=== PATIENT | male | born 1995 | race African-American/Black ===

== ENCOUNTER 2019-03-30 14:39 | Emergency (ER) | payer SELFPAY ==
[~2019-03-30] VITALS: Ht 177.8 cm; Wt 83.9 kg
[2019-03-30] MEDS ORDERED: NKM (14:51)
[2019-03-30 14:54] VITALS: BP 94/52
--- NOTE | 2019-03-30 14:55 | NUR ---
ED Nurse Note: Pt is here to check for STD, stated partner informed him that she has STD recently.
[2019-03-30] MEDS ORDERED: Lidocaine 1% MPF 10mg/ml 5ml INJ ONE (15:15)
--- NOTE | 2019-03-30 15:32 | Emergency Room Report ---
History of Present Illness General Chief Complaint: Male Urogenital Problems Source: Patient Present Illness HPI 23-year-old male with no significant past medical history here requesting treatment for exposure to gonorrhea. Patient sexual partner was recently diagnosed and treated for gonorrhea. Patient denies any penile discharge or urinary symptoms. Denies abdominal pain, nausea vomiting, fever and chills. Patient denies any condom use. Allergies: Coded Allergies: PENICILLINS (Verified Allergy, Unknown, 03/30/19) Patient History Past Medical History: see triage record Past Surgical History: unable to obtain Pertinent Family History: none Immunizations: UTD Reviewed Nursing Documentation: PMH: Agreed; PSxH: Agreed Nursing Documentation-PMH Past Medical History: No Stated History Review of Systems All Other Systems: negative except mentioned in HPI Physical Exam Vital Signs Date Time Temp Pulse Resp B/P (MAP) Pulse Ox O2 Delivery O2 Flow Rate FiO2 03/30/19 14:48 98.2 47 18 94/52 (66) 96 Room Air Sp02 EP Interpretation: reviewed General Appearance: no apparent distress, alert, GCS 15, non-toxic Head: normocephalic, atraumatic ENT: hearing grossly normal, normal pharynx, no angioedema, normal voice Neck: full range of motion, supple/symm/no masses Respiratory: chest non-tender, lungs clear, normal breath sounds, speaking full sentences Cardiovascular #1: regular rate, rhythm, no edema Gastrointestinal: normal inspection, non tender, soft Rectal: deferred Genitourinary: no CVA tenderness Musculoskeletal: back normal, gait/station normal, normal range of motion, non- tender, calf tenderness Neurologic: alert, oriented x3, responsive, motor strength/tone normal, sensory intact, speech normal Psychiatric: judgement/insight normal, memory normal, mood/affect normal, no suicidal/homicidal ideation Skin: no rash Lymphatic: no adenopathy Medical Decision Making PA Attestation All diagnoses and treatment plans were reviewed and discussed with my supervising physician Dr. Corbin Diagnostic Impression: Primary Impression: Exposure to gonorrhea ER Course 23-year-old male with no significant past medical history here requesting treatment for exposure to gonorrhea. Patient sexual partner was recently diagnosed and treated for gonorrhea. Patient denies any penile discharge or urinary symptoms. Denies abdominal pain, nausea vomiting, fever and chills. Patient denies any condom use. Ddx considered but are not limited to: vaginitis, yeast infection, BV, chlamydia , Gohnorrea, syphylis, HIV, herpes 1 or 2 Vital signs: are WNL, pt. is afebrile H&PE are most consistent with : Exposure to gonorrhea ORDERS: UA, GC and chlamydia, doxycycline ED INTERVENTIONS: None required at this time. DISCHARGE: At this time pt. is stable for d/c to home. Will provide printed patient care instructions, and any necessary prescriptions. Care plan and follow up instructions have been discussed with the patient prior to discharge. Patient to follow-up with a primary care provider and finish antibiotics. Last Vital Signs Date Time Temp Pulse Resp B/P (MAP) Pulse Ox O2 Delivery O2 Flow Rate FiO2 03/30/19 14:54 98.2 51 18 94/52 96 Room Air Disposition: HOME, SELF-CARE Condition: Stable Scripts Doxycycline Hyclate (DOXYCYCLINE HYCLATE) 100 Mg Tablet 100 MG PO BID for 10 Days, #20 TAB Prov: Trevor Quintanilla 03/30/19 Patient Instructions: Gonorrhea Additional Instructions: Take medication as directed follow-up with your primary care provider if symptoms continue Trevor Quintanilla Mar 30, 2019 15:32
[2019-03-30] MEDS ORDERED: DOXYCYCLINE HY100 M6 PO (15:33)
[2019-03-30 15:44] VITALS: BP 102/56
--- NOTE | 2019-03-30 15:44 | NUR ---
ER DISCHARGE NOTE: Patient is cleared to be discharged per ERMD, pt is aox4, on room air, with stable vital signs. pt was given dc and prescription instructions, pt was able to verbalize understanding, pt id band removed. pt is able to ambulate with steady gait. pt took all belongings.
== END 2019-03-30 15:44 | disposition home or self-care (01) ==
LOC: EMR 15:32
DX: Z20.2 Contact with and (suspected) exposure to infections with a predominantly sexual mode of transmission (principal); Z88.0 Allergy status to penicillin
CPT/HCPCS: 87491; 87590; 99282